=== PATIENT | female | born 1985 | race Two or more races ===

== ENCOUNTER 2016-09-26 03:10 | Emergency (ER) | payer MEDICAID, OTHER, SELFPAY ==
[~2016-09-26] VITALS: Ht 170.2 cm; Wt 99.8 kg
[2016-09-26 03:11] VITALS: BP 122/79
[2016-09-26] MEDS ORDERED: IBUP800T PO (03:20)
[2016-09-26] MEDS ORDERED: FLUORESCEIN OPHTHALMIC 1 MG STRIP ONE (03:21)
[2016-09-26] MEDS ORDERED: PROPARACAINE OPHTH 0.5%, 15ML ONE (03:21)
== END 2016-09-26 04:31 | disposition home or self-care (01) ==
LOC: ED 03:38
DX: S05.01XA Injury of conjunctiva and corneal abrasion without foreign body, right eye, initial encounter (principal); X58.XXXA Exposure to other specified factors, initial encounter; Y93.89 Activity, other specified; Y92.89 Other specified places as the place of occurrence of the external cause; Y99.8 Other external cause status
CPT/HCPCS: 99283